=== PATIENT | female | born 1945 | race Caucasian/White ===

== ENCOUNTER 2016-08-23 10:28 | Inpatient (IN) | payer MEDICARE, BC ==
[~2016-08-23] VITALS: Ht 152.4 cm; Wt 78.0 kg
[~2016-08-23 10:28] MED LIST: ALBUTEROL2.5 MG/0.5 INH; AMOXICILLIN,AM875 MG PO; AUGMENTIN 875875 MG PO; CIPROFLOXACIN500 MG PO; CLARITIN10 MG PO; CORDROL20 MG PO; DELTASONE20 MG PO; DOXYCYCLINE MO100 MG PO; DOXYCYCLINE100 M3 PO; DUONEB 3 MG/3 ML3 M1 INH; DUONEB 3ML 3 MG/3 ML; HYDROXYCHLOROQ200 MG PO; HYDROXYZINE HCL25 MG PO; KLOR-CON 1010 MEQ PO; KLOR-CON M2020 MEQ PO; LISINOPRIL AND1 TA1 PO; LISINOPRIL-HYDR1 TA1 PO; MEDROL DOSEPAK4 MG PO; METFORMIN500 MG PO; MICRO K10 MEQ PO; NASONEX0.05 MG/AC NS; PREDNISONE10 MG PO; SYMBICORT1 AE1 INH; VIBRAMYCIN100 MG PO; VITAMIN D1000 IU PO; ZANTAC 300300 MG PO; [UNRECOGNIZED DRUG - OTHER] PO
[2016-08-23 11:10] VITALS: BP 140/76
[2016-08-23 11:19] VITALS: BP 140/76
[2016-08-23] MEDS ORDERED: VITAMIN D1000 IU PO (12:11)
[2016-08-23] MEDS ORDERED: ALDARA T (12:12)
[2016-08-23 13:40] LABS: BUN 14 mg/dl (7-24); CARBON DIOXIDE 25 mmol/L (21-32); CHLORIDE 107 mmol/L (98-107); EST GLOM FILT AFRICAN AMERICAN > 60 ml/min; GLUCOSE 140 mg/dL (65-99); MAGNESIUM 1.9 mg/dL (1.5-2.1); POTASSIUM 3.9 mmol/L (3.5-5.1); SODIUM 140 mmol/L (136-145)
[2016-08-23 13:44] LABS: CPK 68 U/L (26-192)
[2016-08-23 13:48] LABS: CKMB < 0.5 ng/ml (0.5-3.6); TROPONIN I < 0.015 ng/ml (<0.045)
[2016-08-23 13:55] LABS: ALBUMIN 3.6 gm/dl (3.1-4.5); ALKALINE PHOSPHATASE 88 U/L (45-117); BILIRUBIN, TOTAL 0.5 mg/dl (0.2-1.0); SGOT/AST 15 IU/L (3-35); SGPT/ALT 23 U/L (12-78); TOTAL PROTEIN 7.2 gm/dL (6.4-8.2)
[2016-08-23 16:00] VITALS: BP 134/61
[2016-08-23 18:03] LABS: BASO % 0.2 % (0.0-1.0); EOS # 0.4 10*3/uL (0.0-0.4); EOS % 4.8 % (1.0-4.0); HEMATOCRIT 38.8 % (37.0-47.0); HEMOGLOBIN 13.3 g/dl (12.0-16.0); LYMPH # 2.6 10*3/uL (1.3-4.4); LYMPH % 28.8 % (27.0-41.0); MEAN CELL VOLUME 90.2 fl (81.0-99.0); MEAN CORPUSCULAR HGB 30.9 pg (27.0-31.0); MEAN CORPUSCULAR HGB CONC 34.3 g/dl (33.0-37.0); MEAN PLATELET VOLUME 10.5 fl (9.6-12.3); MONO # 0.5 10*3/uL (0.1-1.0); MONO % 5.6 % (3.0-9.0); NEUT # 5.5 10*3/uL (2.3-7.9); NEUT % 60.3 % (47.0-73.0); PLATELET COUNT AUTOMATED 153 10*3/uL (130-400); RED CELL DISTRI WIDTH 12.7 % (0-14.5); WHITE BLOOD COUNT 9.1 10*3/uL (4.8-10.8)
[2016-08-23 20:00] VITALS: BP 124/55
[2016-08-23 22:03] LABS: CPK 66 U/L (26-192)
[2016-08-23 22:04] LABS: CKMB < 0.5 ng/ml (0.5-3.6); TROPONIN I < 0.015 ng/ml (<0.045)
[2016-08-24] VITALS: BP 109/52
[2016-08-24 06:09] LABS: CPK 64 U/L (26-192)
[2016-08-24 06:11] LABS: CKMB < 0.5 ng/ml (0.5-3.6); TROPONIN I < 0.015 ng/ml (<0.045)
[2016-08-24 08:00] VITALS: BP 159/60
[2016-08-24 12:00] VITALS: BP 140/57
[2016-08-24 16:00] VITALS: BP 142/64
== END 2016-08-24 18:12 | disposition home or self-care (01) | DRG 313 ==
LOC: 5E 10:28
PROVIDERS: Internal Medicine
PROC: 4A02XM4 Measurement of Cardiac Total Activity, External Approach (ICD-10-PCS; principal; 2016-08-24)
PROC: 3E073KZ Introduction of Other Diagnostic Substance into Coronary Artery, Percutaneous Approach (ICD-10-PCS; principal; 2016-08-24)
DX: R07.89 Other chest pain (principal); J44.9 Chronic obstructive pulmonary disease, unspecified; I10 Essential (primary) hypertension; K21.9 Gastro-esophageal reflux disease without esophagitis; Z88.6 Allergy status to analgesic agent; Z88.8 Allergy status to other drugs, medicaments and biological substances

== ENCOUNTER → 2016-09-09 | Outpatient (CLI) | payer MEDICARE, BC ==
[~2016-09-09] MED LIST changes: +ALDARA T
== END | disposition home or self-care (01) ==
LOC: LAB 09:35
DX: R82.8 Abnormal findings on cytological and histological examination of urine (principal)

== ENCOUNTER → 2016-11-22 | Outpatient (CLI) | payer MEDICARE, BC | END | disposition home or self-care (01) | LOC: MAMMO 11-15 16:00 | DX: Z12.31 Encounter for screening mammogram for malignant neoplasm of breast (principal) ==

== ENCOUNTER → 2017-11-28 | Outpatient (CLI) | payer MEDICARE, BC | END | disposition home or self-care (01) | LOC: MAMMO 02:57 | DX: Z12.31 Encounter for screening mammogram for malignant neoplasm of breast (principal) ==

== ENCOUNTER → 2018-04-05 | Outpatient (CLI) | payer MEDICARE, BC ==
[~2018-04-05] MED LIST changes: +KEFLEX500 M1 PO; +SYMB160 INH; +TEMOVATE30 GM T
--- NOTE | ~2018-04-05 | ST ---
[place], [place] EXERCISE STRESS TEST REPORT NAME: HI AGUILLON [facility] #: [id number] UNIT #: [id number] ROOM: DOCTOR: KEYSHA UMANA MD BIRTHDATE: [birth year] DOS: 04/05/2018 CARDIAC STRESS TESTING TREADMILL TEST WITH CARDIOLITE FINDINGS: The patient is a 72-year-old female going for surgery under anesthesia soon. The test was performed to clear her for surgery. She is a high risk for coronary artery disease. The patient was tested under standard Jose protocol and she exercised for a total of 6 minutes and the test was stopped because she had reached the targeted heart rate at 89% of the PMHR, maximum heart rate of 133 beats per minute. The patient's baseline EKG showed normal sinus rhythm at the heart rate of 71 beats per minute. Normal cardiac axis, slight intraventricular conduction delay. No ST-T abnormality. During the exercise and recovery phase, the patient did not develop any significant EKG abnormality compatible with myocardial ischemia. There were no complaints of any angina-like symptoms. 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 The patient was injected with nuclear scan during the peak phase of exercise. IMPRESSION: 1. Normal EKG part of the treadmill test with nuclear scan at 89% PMHR. Maximum blood pressure was 164 systolic over 60 diastolic. No angina-like symptoms and no EKG abnormality. 2. Nuclear scan results to be reported by Dr. Freeman, the learning and development specialist later today. KEYSHA UMANA MD CM:STRESS:EXERCISE STRESS TEST REPORT [id number] KEYSHA UMANA MD
--- NOTE | 2018-04-05 09:15 | NUR ---
INFORMED CONSENT OBTAINED FOR EXERCISE CARDIOLITE STRESS TEST WITH DR. UMANA. RESTING EKG NSR WITH A SUPINE HR OF 71 WITH BP OF 118/74 AND HR OF 80 WITH BP OF 120/68 IN STANDING POSITION. PT COMPLETED 6:00 OF A HANK PROTOCOL WITH COMPLETION OF STAGE II AT 2.5 MPH AND 12% GRADE. REACHED A PEAK HR OF 133 WHICH IS 89% OF PREDICTED MAX WITH A PEAK BP OF 164/60. HAD NO CHEST PAIN OR ANY EKG CHANGES. HAS A GOOD EXERCISE TOLANCE. LAST RECOVERY HR OF 92 WITH BP OF 130/64. AWAITING SCANNING IN STABLE CONDITION.
== END | disposition home or self-care (01) ==
LOC: CARD 00:03
DX: R07.89 Other chest pain (principal); R06.02 Shortness of breath

== ENCOUNTER → 2018-08-02 | Outpatient (CLI) | payer MEDICARE, BC | END | disposition home or self-care (01) | LOC: LAB 09:18 | DX: E11.9 Type 2 diabetes mellitus without complications (principal) ==

== ENCOUNTER → 2019-04-23 | Outpatient (CLI) | payer MEDICARE, BC ==
[2019-04-23 13:16] LABS: BASO # 0.1 10*3/uL (0.0-0.1); BASO % 0.6 % (0.0-1.0); EOS # 0.4 10*3/uL (0.0-0.4); EOS % 4.2 % (1.0-4.0); HEMATOCRIT 43.1 % (37.0-47.0); HEMOGLOBIN 14.4 g/dl (12.0-16.0); LYMPH # 2.5 10*3/uL (1.3-4.4); LYMPH % 27.8 % (27.0-41.0); MEAN CELL VOLUME 93.9 fl (81.0-99.0); MEAN CORPUSCULAR HGB 31.4 pg (27.0-31.0); MEAN CORPUSCULAR HGB CONC 33.4 g/dl (33.0-37.0); MEAN PLATELET VOLUME 10.9 fl (9.6-12.3); MONO # 0.6 10*3/uL (0.1-1.0); MONO % 6.6 % (3.0-9.0); NEUT # 5.4 10*3/uL (2.3-7.9); NEUT % 60.4 % (47.0-73.0); PLATELET COUNT AUTOMATED 189 10*3/uL (130-400); RED BLOOD COUNT 4.59 10*6/uL (4.10-5.10); RED CELL DISTRI WIDTH 12.2 % (0-14.5)
[2019-04-23 13:32] LABS: ALBUMIN 3.5 gm/dl (3.1-4.5); ALKALINE PHOSPHATASE 89 U/L (45-117); BUN 18 mg/dl (7-24); CHLORIDE 108 mmol/L (98-107); CHOLESTEROL 228 mg/dL (<200); CREATININE 0.87 mg/dL (0.55-1.02); FREE T4 0.96 ng/dl (0.76-1.46); HDL CHOLESTEROL 48 mg/dl (40-60); LDL CHOLESTEROL 136 mg/dL (9-159); POTASSIUM 4.5 mmol/L (3.5-5.1); SGOT/AST 17 IU/L (3-35); SGPT/ALT 30 U/L (12-78); SODIUM 141 mmol/L (136-145); TOTAL PROTEIN 7.3 gm/dL (6.4-8.2); TRIGLYCERIDES 219 mg/dl (<150); VLDL CHOLESTEROL 44 mg/dL (6-40)
[2019-04-23 14:30] LABS: VITAMIN D, 25-HYDROXY 34.4 ng/mL (30-100)
== END | disposition home or self-care (01) ==
LOC: LAB 12:25
PROVIDERS: Internal Medicine
DX: I10 Essential (primary) hypertension (principal); E11.9 Type 2 diabetes mellitus without complications; E78.2 Mixed hyperlipidemia; E55.9 Vitamin D deficiency, unspecified; Z00.00 Encounter for general adult medical examination without abnormal findings

== ENCOUNTER → 2019-12-24 | Outpatient (CLI) | payer MEDICARE, BC | END | disposition home or self-care (01) | LOC: COVID19 15:09 | PROVIDERS: ATTEND Internal Medicine | DX: Z20.828 Contact with and (suspected) exposure to other viral communicable diseases (principal) ==

== ENCOUNTER → 2020-07-24 | Outpatient (CLI) | payer MEDICARE, BC ==
[2020-07-24 07:57] LABS: BASO # 0.1 10*3/uL (0.0-0.1); BASO % 0.6 % (0.0-1.0); EOS # 0.5 10*3/uL (0.0-0.4); EOS % 6.5 % (1.0-4.0); HEMATOCRIT 39.4 % (37.0-47.0); LYMPH # 2.8 10*3/uL (1.3-4.4); LYMPH % 33.3 % (27.0-41.0); MEAN CELL VOLUME 93.1 fl (81.0-99.0); MEAN CORPUSCULAR HGB 31.4 pg (27.0-31.0); MEAN CORPUSCULAR HGB CONC 33.8 g/dl (33.0-37.0); MEAN PLATELET VOLUME 10.3 fl (9.6-12.3); MONO # 0.6 10*3/uL (0.1-1.0); MONO % 6.8 % (3.0-9.0); NEUT # 4.4 10*3/uL (2.3-7.9); NEUT % 52.4 % (47.0-73.0); PLATELET COUNT AUTOMATED 182 10*3/uL (130-400); RED BLOOD COUNT 4.23 10*6/uL (4.10-5.10); RED CELL DISTRI WIDTH 12.2 % (0-14.5); WHITE BLOOD COUNT 8.3 10*3/uL (4.8-10.8)
[2020-07-24 08:24] LABS: ALBUMIN 3.5 gm/dl (3.1-4.5); BUN 24 mg/dl (7-24); CHLORIDE 107 mmol/L (98-107); CREATININE 0.86 mg/dL (0.55-1.02); LDH 165 U/L (84-246); POTASSIUM 3.8 mmol/L (3.5-5.1); SGPT/ALT 23 U/L (12-78); SODIUM 141 mmol/L (136-145)
[2020-07-24 08:25] LABS: ALKALINE PHOSPHATASE 80 U/L (45-117); SGOT/AST 15 IU/L (3-35)
== END | disposition home or self-care (01) ==
LOC: LAB 07:37
PROVIDERS: ATTEND Obstetrics & Gynecology Gynecologic Oncology
DX: J98.4 Other disorders of lung (principal); C51.9 Malignant neoplasm of vulva, unspecified; Z90.49 Acquired absence of other specified parts of digestive tract

== ENCOUNTER → 2021-07-19 | Outpatient (CLI) | payer MEDICARE, BC ==
[2021-07-19 09:34] LABS: BASO % 0.4 % (0.0-1.0); EOS # 0.4 10*3/uL (0.0-0.4); EOS % 4.3 % (1.0-4.0); HEMATOCRIT 39.3 % (37.0-47.0); LYMPH # 2.4 10*3/uL (1.3-4.4); MEAN CELL VOLUME 93.8 fl (81.0-99.0); MEAN CORPUSCULAR HGB CONC 34.1 g/dl (33.0-37.0); MEAN PLATELET VOLUME 10.3 fl (9.6-12.3); MONO # 0.6 10*3/uL (0.1-1.0); MONO % 6.5 % (3.0-9.0); NEUT # 6.1 10*3/uL (2.3-7.9); NEUT % 63.4 % (47.0-73.0); PLATELET COUNT AUTOMATED 186 10*3/uL (130-400); RED BLOOD COUNT 4.19 10*6/uL (4.10-5.10); RED CELL DISTRI WIDTH 12.5 % (0-14.5); WHITE BLOOD COUNT 9.6 10*3/uL (4.8-10.8)
[2021-07-19 09:51] LABS: ALKALINE PHOSPHATASE 83 U/L (45-117); BUN 26 mg/dl (7-24); CHLORIDE 108 mmol/L (98-107); CHOLESTEROL 236 mg/dL (<200); CREATININE 0.95 mg/dL (0.55-1.02); LDL CHOLESTEROL 141 mg/dL (9-159); POTASSIUM 4.4 mmol/L (3.5-5.1); SGOT/AST 20 IU/L (3-35); SGPT/ALT 23 U/L (12-78); SODIUM 140 mmol/L (136-145); T3 UPTAKE 33 % (31-39); TOTAL PROTEIN 7.2 gm/dL (6.4-8.2); TRIGLYCERIDES 253 mg/dl (<150)
[2021-07-19 09:57] LABS: FREE T4 0.98 ng/dl (0.76-1.46)
[2021-07-19 10:24] LABS: VITAMIN D, 25-HYDROXY 28.9 ng/mL (30-100)
== END | disposition home or self-care (01) ==
LOC: LAB 09:19
PROVIDERS: ATTEND Internal Medicine
DX: E11.65 Type 2 diabetes mellitus with hyperglycemia (principal); E78.2 Mixed hyperlipidemia; I10 Essential (primary) hypertension; Z23 Encounter for immunization; Z13.89 Encounter for screening for other disorder; E55.9 Vitamin D deficiency, unspecified; Z13.0 Encounter for screening for diseases of the blood and blood-forming organs and certain disorders involving the immune mechanism; Z13.21 Encounter for screening for nutritional disorder; Z13.220 Encounter for screening for lipoid disorders; Z13.29 Encounter for screening for other suspected endocrine disorder; Z13.6 Encounter for screening for cardiovascular disorders

== ENCOUNTER → 2021-09-07 | Outpatient (CLI) | payer MEDICARE, BC ==
[2021-09-07 11:48] LABS: BASO % 0.3 % (0.0-1.0); EOS # 0.3 10*3/uL (0.0-0.4); EOS % 3.7 % (1.0-4.0); HEMATOCRIT 37.8 % (37.0-47.0); LYMPH # 2.3 10*3/uL (1.3-4.4); LYMPH % 25.2 % (27.0-41.0); MEAN CORPUSCULAR HGB 31.4 pg (27.0-31.0); MEAN CORPUSCULAR HGB CONC 34.1 g/dl (33.0-37.0); MEAN PLATELET VOLUME 10.1 fl (9.6-12.3); MONO # 0.5 10*3/uL (0.1-1.0); NEUT % 65.5 % (47.0-73.0); PLATELET COUNT AUTOMATED 182 10*3/uL (130-400); RED BLOOD COUNT 4.11 10*6/uL (4.10-5.10); RED CELL DISTRI WIDTH 12.4 % (0-14.5); WHITE BLOOD COUNT 9.1 10*3/uL (4.8-10.8)
[2021-09-07 12:06] LABS: ALKALINE PHOSPHATASE 82 U/L (45-117); BUN 19 mg/dl (7-24); CHLORIDE 107 mmol/L (98-107); CHOLESTEROL 128 mg/dL (<200); CPK 63 U/L (26-192); CREATININE 0.98 mg/dL (0.55-1.02); FREE T4 0.96 ng/dl (0.76-1.46); LDL CHOLESTEROL 49 mg/dL (9-159); SGOT/AST 21 IU/L (3-35); SGPT/ALT 22 U/L (12-78); SODIUM 140 mmol/L (136-145); TOTAL PROTEIN 6.9 gm/dL (6.4-8.2); TRIGLYCERIDES 155 mg/dl (<150)
[2021-09-07 12:43] LABS: VITAMIN D, 25-HYDROXY 35.5 ng/mL (30-100)
== END | disposition home or self-care (01) ==
LOC: LAB 11:34
PROVIDERS: ATTEND Internal Medicine
DX: E55.9 Vitamin D deficiency, unspecified (principal); D52.9 Folate deficiency anemia, unspecified; D51.9 Vitamin B12 deficiency anemia, unspecified; R79.89 Other specified abnormal findings of blood chemistry; R53.81 Other malaise; E03.9 Hypothyroidism, unspecified; Z13.0 Encounter for screening for diseases of the blood and blood-forming organs and certain disorders involving the immune mechanism; Z13.1 Encounter for screening for diabetes mellitus; Z13.228 Encounter for screening for other metabolic disorders; Z13.6 Encounter for screening for cardiovascular disorders; Z13.89 Encounter for screening for other disorder; R74.8 Abnormal levels of other serum enzymes

== ENCOUNTER → 2021-09-28 | Outpatient (CLI) | payer MEDICARE, BC | END | disposition home or self-care (01) | LOC: RAD 08:24 | PROVIDERS: ATTEND Internal Medicine | DX: M88.9 Osteitis deformans of unspecified bone (principal); Z78.0 Asymptomatic menopausal state ==

== ENCOUNTER → 2021-11-23 | Outpatient (CLI) | payer MEDICARE, BC | END | disposition home or self-care (01) | LOC: MAMMO 16:09 | PROVIDERS: ATTEND Internal Medicine | DX: Z12.39 Encounter for other screening for malignant neoplasm of breast (principal); R92.2 Inconclusive mammogram ==

== ENCOUNTER → 2022-04-25 | Outpatient (CLI) | payer MEDICARE, BC ==
[2022-04-25 14:42] LABS: BASO % 0.3 % (0.0-1.0); EOS # 0.3 10*3/uL (0.0-0.4); EOS % 3.8 % (1.0-4.0); HEMATOCRIT 39.5 % (37.0-47.0); LYMPH # 2.9 10*3/uL (1.3-4.4); LYMPH % 32.7 % (27.0-41.0); MEAN CELL VOLUME 92.7 fl (81.0-99.0); MEAN CORPUSCULAR HGB 31.2 pg (27.0-31.0); MEAN CORPUSCULAR HGB CONC 33.7 g/dl (33.0-37.0); MEAN PLATELET VOLUME 10.8 fl (9.6-12.3); MONO # 0.6 10*3/uL (0.1-1.0); MONO % 6.3 % (3.0-9.0); NEUT % 56.6 % (47.0-73.0); PLATELET COUNT AUTOMATED 189 10*3/uL (130-400); RED BLOOD COUNT 4.26 10*6/uL (4.10-5.10); RED CELL DISTRI WIDTH 12.5 % (0-14.5); WHITE BLOOD COUNT 8.9 10*3/uL (4.8-10.8)
[2022-04-25 15:00] LABS: ALKALINE PHOSPHATASE 69 U/L (46-116); BUN 21 mg/dl (9-23); CHLORIDE 108 mmol/L (98-107); CHOLESTEROL 223 mg/dL (<200); FREE T4 1.01 ng/dl (0.89-1.76); LDL CHOLESTEROL 143 mg/dL (9-159); POTASSIUM 3.8 mmol/L (3.4-5.1); SGPT/ALT 13 U/L (10-49); THYROID STIM HORMONE (HS) 1.965 uIU/ml (0.550-4.780); TOTAL PROTEIN 6.7 gm/dL (6.0-8.0); TRIGLYCERIDES 190 mg/dl (<150)
[2022-04-25 15:21] LABS: VITAMIN D, 25-HYDROXY 46.6 ng/mL (30-100)
== END | disposition home or self-care (01) ==
LOC: LAB 14:13
PROVIDERS: ATTEND Internal Medicine
DX: Z13.1 Encounter for screening for diabetes mellitus (principal); E11.9 Type 2 diabetes mellitus without complications; E55.9 Vitamin D deficiency, unspecified; E11.65 Type 2 diabetes mellitus with hyperglycemia; Z13.820 Encounter for screening for osteoporosis; Z13.0 Encounter for screening for diseases of the blood and blood-forming organs and certain disorders involving the immune mechanism; Z13.6 Encounter for screening for cardiovascular disorders; Z13.89 Encounter for screening for other disorder; Z13.220 Encounter for screening for lipoid disorders; Z13.228 Encounter for screening for other metabolic disorders; Z13.29 Encounter for screening for other suspected endocrine disorder; Z13.9 Encounter for screening, unspecified

== ENCOUNTER → 2022-11-28 | Outpatient (CLI) | payer MEDICARE, BC | END | disposition home or self-care (01) | LOC: MAMMO 09:40 | PROVIDERS: ATTEND Internal Medicine | DX: Z12.31 Encounter for screening mammogram for malignant neoplasm of breast (principal) ==

== ENCOUNTER → 2023-06-19 | Outpatient (CLI) | payer MEDICARE, BC ==
[2023-06-19 12:50] LABS: BASO % 0.4 % (0.0-1.0); EOS # 0.2 10*3/uL (0.0-0.4); EOS % 2.8 % (1.0-4.0); HEMATOCRIT 36.8 % (37.0-47.0); LYMPH # 2.5 10*3/uL (1.3-4.4); MEAN CELL VOLUME 94.4 fl (81.0-99.0); MEAN CORPUSCULAR HGB CONC 32.9 g/dl (33.0-37.0); MONO # 0.6 10*3/uL (0.1-1.0); MONO % 6.7 % (3.0-9.0); NEUT % 59.7 % (47.0-73.0); PLATELET COUNT AUTOMATED 236 10*3/uL (130-400); RED CELL DISTRI WIDTH 12.6 % (0-14.5); WHITE BLOOD COUNT 8.3 10*3/uL (4.8-10.8)
[2023-06-19 13:17] LABS: ALKALINE PHOSPHATASE 76 U/L (46-116); BUN 19 mg/dl (9-23); CHLORIDE 104 mmol/L (98-107); CHOLESTEROL 204 mg/dL (<200); FREE T4 1.06 ng/dl (0.89-1.76); LDL CHOLESTEROL 129 mg/dL (9-159); POTASSIUM 4.1 mmol/L (3.4-5.1); SGPT/ALT 14 U/L (5-49); TRIGLYCERIDES 207 mg/dl (<150)
[2023-06-19 13:55] LABS: VITAMIN D, 25-HYDROXY 54.6 ng/mL (30-100)
== END | disposition home or self-care (01) ==
LOC: LAB 12:32
PROVIDERS: ATTEND Internal Medicine
DX: Z13.0 Encounter for screening for diseases of the blood and blood-forming organs and certain disorders involving the immune mechanism (principal); Z13.1 Encounter for screening for diabetes mellitus; Z13.21 Encounter for screening for nutritional disorder; Z13.220 Encounter for screening for lipoid disorders; Z13.228 Encounter for screening for other metabolic disorders; Z13.29 Encounter for screening for other suspected endocrine disorder; Z13.6 Encounter for screening for cardiovascular disorders; Z13.89 Encounter for screening for other disorder; Z13.9 Encounter for screening, unspecified; I10 Essential (primary) hypertension; E78.2 Mixed hyperlipidemia; E11.9 Type 2 diabetes mellitus without complications; E87.6 Hypokalemia; E55.9 Vitamin D deficiency, unspecified

== ENCOUNTER → 2023-07-04 | Outpatient (CLI) | payer MEDICARE, BC ==
[2023-07-04 09:42] LABS: BASO # 0.1 10*3/uL (0.0-0.1); BASO % 0.6 % (0.0-1.0); EOS # 0.3 10*3/uL (0.0-0.4); EOS % 2.6 % (1.0-4.0); LYMPH # 2.1 10*3/uL (1.3-4.4); LYMPH % 19.8 % (27.0-41.0); MEAN CORPUSCULAR HGB 30.4 pg (27.0-31.0); MEAN PLATELET VOLUME 10.8 fl (9.6-12.3); MONO # 0.6 10*3/uL (0.1-1.0); MONO % 5.3 % (3.0-9.0); NEUT # 7.7 10*3/uL (2.3-7.9); NEUT % 71.2 % (47.0-73.0); PLATELET COUNT AUTOMATED 226 10*3/uL (130-400); RED BLOOD COUNT 4.21 10*6/uL (4.10-5.10); RED CELL DISTRI WIDTH 12.7 % (0-14.5); WHITE BLOOD COUNT 10.8 10*3/uL (4.8-10.8)
[2023-07-04 10:12] LABS: ALKALINE PHOSPHATASE 80 U/L (46-116); BUN 24 mg/dl (9-23); CHLORIDE 103 mmol/L (98-107); POTASSIUM 4.2 mmol/L (3.4-5.1); SGPT/ALT 11 U/L (5-49)
== END | disposition home or self-care (01) ==
LOC: LAB 09:07
PROVIDERS: ATTEND Obstetrics & Gynecology Gynecologic Oncology
DX: I49.1 Atrial premature depolarization (principal); C51.9 Malignant neoplasm of vulva, unspecified; R00.8 Other abnormalities of heart beat

== ENCOUNTER → 2024-02-19 | Outpatient (CLI) | payer MEDICARE, BC | END | disposition home or self-care (01) | LOC: MAMMO 09:33 | PROVIDERS: ATTEND Internal Medicine | DX: Z12.31 Encounter for screening mammogram for malignant neoplasm of breast (principal) ==

== ENCOUNTER → 2024-05-23 | Outpatient (CLI) | payer MEDICARE, BC ==
[2024-05-23 08:37] LABS: BASO % 0.5 % (0.0-1.0); EOS # 0.2 10*3/uL (0.0-0.4); EOS % 2.7 % (1.0-4.0); HEMATOCRIT 38.5 % (37.0-47.0); MEAN CELL VOLUME 94.1 fl (81.0-99.0); MEAN CORPUSCULAR HGB 31.3 pg (27.0-31.0); MEAN CORPUSCULAR HGB CONC 33.2 g/dl (33.0-37.0); MEAN PLATELET VOLUME 10.3 fl (9.6-12.3); MONO # 0.7 10*3/uL (0.1-1.0); MONO % 7.9 % (3.0-9.0); NEUT # 5.1 10*3/uL (2.3-7.9); NEUT % 59.7 % (47.0-73.0); PLATELET COUNT AUTOMATED 177 10*3/uL (130-400); RED BLOOD COUNT 4.09 10*6/uL (4.10-5.10); RED CELL DISTRI WIDTH 12.8 % (0-14.5); WHITE BLOOD COUNT 8.5 10*3/uL (4.8-10.8)
[2024-05-23 09:12] LABS: ALKALINE PHOSPHATASE 73 U/L (46-116); BUN 21 mg/dl (9-23); CHLORIDE 106 mmol/L (98-107); CHOLESTEROL 210 mg/dL (<200); FREE T4 1.18 ng/dl (0.89-1.76); LDL CHOLESTEROL 130 mg/dL (9-159); SGPT/ALT 18 U/L (5-49); TOTAL PROTEIN 6.7 gm/dL (6.0-8.0); TRIGLYCERIDES 190 mg/dl (<150)
[2024-05-23 09:34] LABS: VITAMIN D, 25-HYDROXY 47.3 ng/mL (30-100)
== END | disposition home or self-care (01) ==
LOC: LAB 08:21
PROVIDERS: ATTEND Internal Medicine
DX: E11.65 Type 2 diabetes mellitus with hyperglycemia (principal); I10 Essential (primary) hypertension; E78.2 Mixed hyperlipidemia; E55.9 Vitamin D deficiency, unspecified; R79.82 Elevated C-reactive protein (CRP)